=== PATIENT | female | born 1975 | race Hispanic/Latino ===

== ENCOUNTER → 2023-07-06 14:32 | Outpatient (REF) | payer BC, SELFPAY | LOC: PAVMRI 14:32 | PROVIDERS: ATTENDING PHYSICIAN Internal Medicine Hematology & Oncology; FAMILY PHYSICIAN Family Medicine | DX: E55.9 Vitamin D deficiency, unspecified (principal); D47.2 Monoclonal gammopathy; D50.9 Iron deficiency anemia, unspecified; D68.9 Coagulation defect, unspecified; C90.00 Multiple myeloma not having achieved remission | CPT/HCPCS: 72156; 72158; A9575 ==

== ENCOUNTER → 2023-07-16 07:30 | Outpatient (REF) | payer BC, SELFPAY | LOC: PAVMRI 07:30 | PROVIDERS: ATTENDING PHYSICIAN Internal Medicine Hematology & Oncology; FAMILY PHYSICIAN Family Medicine | DX: E55.9 Vitamin D deficiency, unspecified (principal); D47.2 Monoclonal gammopathy; D50.9 Iron deficiency anemia, unspecified; D68.9 Coagulation defect, unspecified; C90.00 Multiple myeloma not having achieved remission | CPT/HCPCS: 72157; A9575 ==

== ENCOUNTER → 2023-12-07 14:25 | Outpatient (REF) | payer BC, SELFPAY | LOC: RAD 14:25 | PROVIDERS: ATTENDING PHYSICIAN Otolaryngology; FAMILY PHYSICIAN Family Medicine; REFERRING PHYSICIAN Internal Medicine Hematology & Oncology | DX: J32.9 Chronic sinusitis, unspecified (principal); G44.89 Other headache syndrome | CPT/HCPCS: 70460; 70486; Q9967 ==

== ENCOUNTER → 2024-05-08 06:54 | Outpatient (REF) | payer BC, SELFPAY | LOC: WDC 06:54 | PROVIDERS: ATTENDING PHYSICIAN Family Medicine | DX: Z12.31 Encounter for screening mammogram for malignant neoplasm of breast (principal) | CPT/HCPCS: 77063; 77067 ==

== ENCOUNTER → 2024-05-08 13:07 | Outpatient (REF) | payer BC, SELFPAY ==
[2024-05-08 13:31] VITALS: BP 121/76; BP_SYST 65
[2024-05-08 14:28] VITALS: BP 124/76
== END ==
LOC: RADI 13:07
PROVIDERS: ATTENDING PHYSICIAN Internal Medicine Hematology & Oncology; FAMILY PHYSICIAN Family Medicine
DX: D47.2 Monoclonal gammopathy (principal); R20.2 Paresthesia of skin; D50.9 Iron deficiency anemia, unspecified; R04.0 Epistaxis
CPT/HCPCS: 88305; 20206; 76942; 88313

== ENCOUNTER → 2024-05-19 08:23 | Outpatient (REF) | payer BC, SELFPAY | LOC: PET 08:23 | PROVIDERS: ATTENDING PHYSICIAN Internal Medicine Hematology & Oncology | DX: C90.00 Multiple myeloma not having achieved remission (principal) | CPT/HCPCS: 78816; A9552 ==

== ENCOUNTER → 2024-08-14 14:33 | Outpatient (REF) | payer BC, SELFPAY | LOC: PAVMRI 14:33 | PROVIDERS: ATTENDING PHYSICIAN Psychiatry & Neurology Neurology; FAMILY PHYSICIAN Family Medicine | DX: R20.0 Anesthesia of skin (principal) | CPT/HCPCS: 70553; A9575 ==

== ENCOUNTER → 2025-03-04 10:23 | Outpatient (REF) | payer BC, SELFPAY ==
[2025-03-04 17:07] LABS: Uric Acid 5.1 mg/dl (2.5-6.2)
[2025-03-05 10:58] LABS: Lyme Antibody Screen, EIA Negative (Negative); Rheumatoid Agglutinin Less Than 10 IU (<10 IU)
[2025-03-05 23:22] LABS: ds-DNA Ab, IgG Reflex To Titer 5 IU (0-24)
[2025-03-06 04:35] LABS: CCP Antibody IgG/IgA 17 Units (0-19)
== END ==
LOC: REG 10:23
PROVIDERS: ATTENDING PHYSICIAN Internal Medicine Rheumatology; FAMILY PHYSICIAN Family Medicine
DX: M06.4 Inflammatory polyarthropathy (principal); M17.10 Unilateral primary osteoarthritis, unspecified knee; M25.521 Pain in right elbow
CPT/HCPCS: 36415; 73070; 73560; 73565; 84550; 86200; 86225; 86430; 86618